=== PATIENT | female | born 1995 | race Hispanic/Latino ===

== ENCOUNTER 2024-03-19 16:30 | Inpatient (IN) | payer MEDICAID, OTHER, SELFPAY ==
[2024-03-19] MEDS ORDERED: hydrALAZINE 20 MG/ML VIAL SLOW IVP PRN (17:10)
[2024-03-19] MEDS ORDERED: Promethazine HCl 25 MG/ML VIAL IM PRN ×2 (17:10→21:05)
[2024-03-19] MEDS ORDERED: Ondansetron PF 4 MG/2 ML Vial IVP PRN ×2 (17:10→21:05)
[2024-03-19] MEDS ORDERED: Lidocaine 1% (PF) 30 ML VIAL SC PRN (17:10)
[2024-03-19] MEDS ORDERED: Acetaminophen 500 MG TAB PO PRN (17:11)
[2024-03-19] MEDS ORDERED: Tranexamic Acid 1,000 MG/10 ML VIAL IVP PRN (17:11)
[2024-03-19] MEDS ORDERED: Carboprost 250 MCG/ML AMP IM PRN (17:11)
[2024-03-19] MEDS ORDERED: Methylergonovine 0.2 MG/ML VIAL IM PRN (17:11)
[2024-03-19] MEDS ORDERED: Diphenoxylate HCl/Atropine Tablet PO PRN (17:11)
[2024-03-19 17:13] VITALS: BMI 26.2
[2024-03-19] MEDS ORDERED: Oxytocin 30 units/NS 500 ML 500 ML IV SCH (17:15)
[2024-03-19] MEDS: Penicillin G Potassium 5 MILL.UNITS in Sodium Chloride 0.9% 100 ML IVPB SCH (17:41)
[2024-03-19 18:06] LABS: Hematocrit 39.4 % (34.9-44.5); Hemoglobin 12.9 g/dL (12.0-15.5); Mean Corpuscular HGB CONC 32.7 g/dL (32.0-36.0); Mean Corpuscular Hemoglobin 29.2 pg (27.0-33.0); Mean Corpuscular Volume 89.1 fL (81.6-98.3); Mean Platelet Volume 10.4 fL (7.4-10.4); Platelet Count 193 10x3/uL (150-450); RBC Distribution Width 14.4 % (11.5-14.5); Red Blood Cell (RBC) Count 4.42 10x6/uL (3.90-5.03); White Blood Cell (WBC) Count 13.6 10x3/uL (3.5-10.5)
[2024-03-19 18:17] LABS: Syphilis Antibody Nonreactive (Nonreactive); Syphilis Antibody Index 0.04 S/CO (<1.00 Non-Reactive)
[2024-03-19 18:18] LABS: HBsAg Index 0.16 S/CO (0-0.99); Hep B Surf Ag - L&D Non-Reactive S/CO (NonReactive)
[2024-03-19] MEDS: fentaNYL/Ropivacaine Epidural 100 ML ONE (20:42)
[2024-03-19] MEDS ORDERED: Naloxone HCl 0.4 mg/ml Vial IVP PRN ×2 (21:05)
[2024-03-19] MEDS ORDERED: diphenhydrAMINE 50 MG/ML VIAL IVP PRN (21:05)
[2024-03-19] MEDS ORDERED: Lactated Ringer's 500 ML IV PRN (21:05)
[2024-03-19] MEDS ORDERED: Moisturizing Cream (Eucerin) 113 GM JAR TOP PRN (21:05)
[2024-03-19] MEDS ORDERED: ePHEDrine Sulfate 50 MG/10 ML VIAL SLOW IVP PRN (21:05)
[2024-03-19] MEDS ORDERED: fentaNYL 2 mcg/Ropivacaine 0.2% Epidural 100 ML CADD EPIDURAL SCH (21:15)
[2024-03-19] MEDS: Penicillin G 2.5 MILL.units 2.5 MILL.UNITS in Premix 1 BAG IVPB SCH (21:52)
[2024-03-20] MEDS: Acetaminophen 325 MG TAB PO PRN ×2 (01:23→07:36)
[2024-03-20] MEDS: Lactated Ringer's 1,000 ML IV SCH (01:29)
[2024-03-20] MEDS ORDERED: SODIUM CHLORIDE 0.9% IVPB SCH (01:30)
[2024-03-20] MEDS ORDERED: GENTAMICIN IVPB SCH (01:30)
[2024-03-20] MEDS: Ampicillin 2 GM VIAL ONE (01:53)
[2024-03-20 02:17] LABS: #Basophils 0.04 10x3/uL (0.0-0.2); #Eosinophils 0.07 10x3/uL (0.0-0.5); #Monocytes 0.69 10x3/uL (0.0-1.1); #Neutrophils 13.96 10x3/uL (1.5-8.4); %Basophils 0.2 % (0.0-2.0); %Eosinophils 0.4 % (0.0-6.0); %Lymphocytes 11.2 % (18.0-47.0); %Monocytes 4.1 % (0.0-10.0); %Neutrophils 83.7 % (40.0-75.0); Hematocrit 37.9 % (34.9-44.5); Hemoglobin 12.7 g/dL (12.0-15.5); Mean Corpuscular HGB CONC 33.5 g/dL (32.0-36.0); Mean Corpuscular Hemoglobin 29.9 pg (27.0-33.0); Mean Corpuscular Volume 89.2 fL (81.6-98.3); Mean Platelet Volume 10.5 fL (7.4-10.4); Platelet Count 178 10x3/uL (150-450); RBC Distribution Width 14.5 % (11.5-14.5); Red Blood Cell (RBC) Count 4.25 10x6/uL (3.90-5.03); White Blood Cell (WBC) Count 16.7 10x3/uL (3.5-10.5)
[2024-03-20] MEDS: SODIUM CHLORIDE 0.9% IVPB SCH (03:03)
[2024-03-20] MEDS: GENTAMICIN SULFATE IVPB SCH (03:03)
[2024-03-20] MEDS: Oxytocin 30 units/NS 500 ML 500 ML IV SCH ×2 (03:30→05:04)
[2024-03-20] MEDS: Ibuprofen 800 MG TAB PO PRN (03:49)
[2024-03-20 03:59] LABS: Analyzer IN Cardio CS NICU; Critical Notified By: clumpkins rt; RapidComm Collect By nvr.bm13; pH (Cord, venous) 7.215 (7.250-7.350)
[2024-03-20 04:00] LABS: Analyzer IN Cardio CS NICU; Critical Notified By: clumpkins rt; RapidComm Collect By nvr.bm13
[2024-03-20] MEDS ORDERED: Lanolin Ointment 7 GM TUBE TOP PRN (04:02)
[2024-03-20] MEDS ORDERED: Boostrix 0.5 ML (Tdap) VIAL (>/=7 yrs of age) IM ONE (04:02)
[2024-03-20] MEDS ORDERED: diphenhydrAMINE 25 MG CAP PO PRN (04:02)
[2024-03-20] MEDS ORDERED: hydrALAZINE 20 MG/ML VIAL SLOW IVP PRN (04:02)
[2024-03-20] MEDS ORDERED: Polyethylene Glycol 3350 17 GM Packet PO PRN (04:02)
[2024-03-20] MEDS ORDERED: Methylergonovine 0.2 MG/ML VIAL IM PRN (04:02)
[2024-03-20] MEDS ORDERED: Bisacodyl 10 MG SUPP PR PRN (04:02)
[2024-03-20] MEDS ORDERED: Misoprostol 200 MCG TAB VAG PRN (04:02)
[2024-03-20] MEDS: Misoprostol 200 MCG TAB PR PRN (04:23)
[2024-03-20] MEDS: Benzocaine-Menthol 82.5 ML CAN TOP PRN (07:35)
[2024-03-20] MEDS: AMPicillin 2 GM in Sodium Chloride 0.9% 100 ML IVPB SCH (07:36)
[2024-03-20] MEDS: Prenatal Vitamin 1 TAB PO SCH (07:36)
[2024-03-20] MEDS: Docusate 100 MG CAP PO SCH (07:36)
[2024-03-20 12:20] LABS: #Basophils 0.06 10x3/uL (0.0-0.2); #Eosinophils 0.01 10x3/uL (0.0-0.5); #Monocytes 1.91 10x3/uL (0.0-1.1); #Neutrophils 19.17 10x3/uL (1.5-8.4); %Basophils 0.2 % (0.0-2.0); %Lymphocytes 11.5 % (18.0-47.0); %Monocytes 7.9 % (0.0-10.0); %Neutrophils 79.4 % (40.0-75.0); Hematocrit 32.3 % (34.9-44.5); Hemoglobin 10.7 g/dL (12.0-15.5); Mean Corpuscular HGB CONC 33.1 g/dL (32.0-36.0); Mean Corpuscular Hemoglobin 29.6 pg (27.0-33.0); Mean Corpuscular Volume 89.2 fL (81.6-98.3); Mean Platelet Volume 10.3 fL (7.4-10.4); Platelet Count 160 10x3/uL (150-450); RBC Distribution Width 14.4 % (11.5-14.5); Red Blood Cell (RBC) Count 3.62 10x6/uL (3.90-5.03); White Blood Cell (WBC) Count 24.2 10x3/uL (3.5-10.5)
[2024-03-20 12:35] LABS: ALT (SGPT) 11 U/L (8-55); AST (SGOT) 16 U/L (5-34); Albumin 1.8 g/dL (3.5-5.0); Alkaline Phosphatase 210 U/L (40-110); Anion Gap 10 mmol/L (10-20); BUN (Urea Nitrogen) 5 mg/dL (7.0-18.7); Bilirubin, Total 0.6 mg/dL (0.2-1.2); Calc. Creatinine Clearance 146 mL/min (70-130); Calcium 7.9 mg/dL (7.8-10.44); Carbon Dioxide 17 mmol/L (22-29); Chloride 112 mmol/L (98-107); Estimated GFR 128; Globulin 2.9 g/dL (2.4-3.5); Glucose 97 mg/dL (70-105); Potassium 3.3 mmol/L (3.5-5.1); Protein, Total 4.7 g/dL (6.0-8.3); Sodium 136 mmol/L (136-145)
[2024-03-20] MEDS: Ampicillin 2 GM in Sodium Chloride 0.9% 100 ML IVPB SCH (13:05)
[2024-03-20] MEDS: Ibuprofen 800 MG TAB PO SCH (13:07)
[2024-03-21 04:25] LABS: #Basophils 0.05 10x3/uL (0.0-0.2); #Eosinophils 0.09 10x3/uL (0.0-0.5); #Monocytes 0.82 10x3/uL (0.0-1.1); #Neutrophils 13.24 10x3/uL (1.5-8.4); %Basophils 0.3 % (0.0-2.0); %Eosinophils 0.5 % (0.0-6.0); %Lymphocytes 20.1 % (18.0-47.0); %Monocytes 4.6 % (0.0-10.0); %Neutrophils 73.7 % (40.0-75.0); Hematocrit 30.7 % (34.9-44.5); Hemoglobin 10.4 g/dL (12.0-15.5); Mean Corpuscular HGB CONC 33.9 g/dL (32.0-36.0); Mean Corpuscular Hemoglobin 30.3 pg (27.0-33.0); Mean Corpuscular Volume 89.5 fL (81.6-98.3); Mean Platelet Volume 10.6 fL (7.4-10.4); Platelet Count 149 10x3/uL (150-450); RBC Distribution Width 14.7 % (11.5-14.5); Red Blood Cell (RBC) Count 3.43 10x6/uL (3.90-5.03)
[2024-03-21 04:38] LABS: Anion Gap 11 mmol/L (10-20); BUN (Urea Nitrogen) 6 mg/dL (7.0-18.7); Calc. Creatinine Clearance 158 mL/min (70-130); Calcium 8.2 mg/dL (7.8-10.44); Carbon Dioxide 18 mmol/L (22-29); Chloride 114 mmol/L (98-107); Estimated GFR 131; Glucose 84 mg/dL (70-105); Potassium 3.7 mmol/L (3.5-5.1); Sodium 139 mmol/L (136-145)
[2024-03-21] MEDS: Ferrous Sulfate 325 MG TAB PO SCH (07:59)
[2024-03-22 04:09] LABS: Hematocrit 30.9 % (34.9-44.5); Hemoglobin 10.4 g/dL (12.0-15.5); Mean Corpuscular HGB CONC 33.7 g/dL (32.0-36.0); Mean Corpuscular Hemoglobin 29.9 pg (27.0-33.0); Mean Corpuscular Volume 88.8 fL (81.6-98.3); Mean Platelet Volume 10.7 fL (7.4-10.4); Platelet Count 179 10x3/uL (150-450); RBC Distribution Width 14.6 % (11.5-14.5); Red Blood Cell (RBC) Count 3.48 10x6/uL (3.90-5.03); White Blood Cell (WBC) Count 10.2 10x3/uL (3.5-10.5)
[2024-03-22 07:57] VITALS: BP 100/71; TEMP 97.9
[2024-03-22] MEDS: Polyethylene Glycol 3350 17 GM Packet PO SCH (11:35)
[2024-03-22] MEDS: Simethicone Chewable 80 MG TAB PO SCH (11:36)
[2024-03-22] MEDS: Famotidine 20 MG TAB PO SCH (11:36)
== END 2024-03-22 13:45 | disposition home or self-care (01) | DRG 805 ==
LOC: CSHLD/OP 16:30 → CSHLD 17:49 → CSHPP 03-20 08:00
PROVIDERS: ADMIT Family Medicine; ATTEND Family Medicine
PROC: 10D07Z6 Extraction of Products of Conception, Vacuum, Via Natural or Artificial Opening (ICD-10-PCS; principal; 2024-03-19)
PROC: 0KQM0ZZ Repair Perineum Muscle, Open Approach (ICD-10-PCS; 2024-03-19)
PROC: 4A033R1 Measurement of Arterial Saturation, Peripheral, Percutaneous Approach (ICD-10-PCS; 2024-03-20)
DX: O99.824 Streptococcus B carrier state complicating childbirth (principal); O41.1230 Chorioamnionitis, third trimester, not applicable or unspecified; Z37.0 Single live birth; D62 Acute posthemorrhagic anemia; Z3A.39 39 weeks gestation of pregnancy; Z79.899 Other long term (current) drug therapy; O77.0 Labor and delivery complicated by meconium in amniotic fluid; O76 Abnormality in fetal heart rate and rhythm complicating labor and delivery; O70.1 Second degree perineal laceration during delivery; O99.03 Anemia complicating the puerperium
CPT/HCPCS: 36415; 51702; 80048; 80053; 82805; 85025; 85027; 86780; 86850; 86900; 86901; 87040; 87340; 88307; 99285; J0290; J1580; J2540; J2590